=== PATIENT | female | born 1995 | race Caucasian/White ===

== ENCOUNTER 2017-06-11 21:10 | Emergency (ER) | payer MEDICAID ==
[2017-06-11 21:31] VITALS: BP 116/86
--- NOTE | 2017-06-11 21:53 | EDM.PDOC ---
ED HPI GENERAL MEDICAL PROBLEM - General Chief Complaint: ABSTRACTER Problem Stated Complaint: BLEEDING Time Seen by Provider: 06/11/17 21:53 Source of Information: Reports: Patient History Limitations: Reports: No Limitations - History of Present Illness INITIAL COMMENTS - FREE TEXT/NARRATIVE: 21-year-old female who is 3 para 0 presents to the hospital with bleeding per vagina. This blood is mostly old dark brown blood. Associated left- sided darnell-abdominal cramping pain particularly mid abdomen. Last semester. Is estimated to be March 04. This would make her approximately 14 weeks and 2 days . Patient indicates ED is having troubles with constipation. She states she can usually make her bowels work by drinking coffee. The has otherwise been uncomplicated of the nausea and vomiting intermittently which is better now. Her bleeding or problems so far. She had a miscarriage at 3 weeks gestation in a previous therapeutic . Onset: Today (Since no she's noticed brown vaginal discharge. No order.) Onset Date: 06/11/17 Onset Time: 12:00 Duration: Hour(s): Location: Reports: Other (Per vagina.) Quality: Reports: Other (Occasional cramping pain left lower quadrant mostly left mid lateral abdomen) Severity: Mild Improves with: Reports: None Worsens with: Reports: None Context: Reports: Other (Currently 14 weeks ). Denies: Activity, Exercise, Lifting, Sick Contact, Trauma Associated Symptoms: Denies: Loss of Appetite, Nausea/Vomiting, Rash, Seizure, Shortness of Breath, Syncope, Weakness Treatments APPRENTICE: Reports: Other (see below) (None.) Lower Abdomen Pain Score (Numeric/FACES): 6 - Related Data Allergies Allergy/AdvReac Type Severity Reaction Status Date / Time penicillin Allergy Rash Verified 09/14/15 07:16 Penicillins Allergy unknown Verified 11/08/15 03:10 CDT strawberry Allergy Hives Verified 09/14/15 07:16 Home Meds: Home Meds Albuterol [Ventolin HFA] 1 puff INH ASDIRECTED PRN 11/08/15 [History] PNV95/Ferrous Fumarate/FA [ Tablet] 1 tab PO DAILY 06/11/17 [History] Past Medical History HEENT History: Reports: Impaired Vision Other HEENT History: wears eyeglasses, Hx-ear infections. Cardiovascular History: Reports: Arrhythmia Other Cardiovascular History: irregular heartbeat Respiratory History: Reports: Asthma Genitourinary History: Reports: None, UTI, Recurrent ABSTRACTER History: Reports: , Spontaneous , Therapeutic , Other (See Below) Other OB/BYN History: IUD Musculoskeletal History: Reports: Back Pain, Chronic, None Neurological History: Reports: Migraines Psychiatric History: Reports: Addiction, Anxiety, Depression Immunologic History: Reports: None Oncologic (Cancer) History: Reports: None - Infectious Disease History Infectious Disease History: Reports: None - Past Surgical History HEENT Surgical History: Reports: Adenoidectomy, Tonsillectomy GI Surgical History: Reports: Appendectomy Social & Family History - Family History Family Medical History: Unobtainable HEENT: Reports: None Cardiac: Reports: None - Tobacco Use Smoking Status *Q: Never Smoker Second Hand Smoke Exposure: Yes - Caffeine Use Caffeine Use: Reports: Soda, Tea - Recreational Drug Use Recreational Drug Use: No Drug Use in Last 12 Months: Yes Recreational Drug Type: Reports: Marijuana/Hashish Other Recreational Drug Type: used marijuana in the past; last usage was in February Recreational Drug Use Frequency: Socially Recreational Drug Last Use: sep 07 2015 - Living Situation & Occupation Living situation: Reports: Single Occupation: Student ED ROS GENERAL - Review of Systems Review Of Systems: See Below Constitutional: Reports: Malaise, Weakness, Fatigue. Denies: Fever, Chills, Decreased Appetite, Weight Loss HEENT: Reports: No Symptoms Respiratory: Reports: No Symptoms Cardiovascular: Reports: No Symptoms Endocrine: Reports: Fatigue GI/Abdominal: Reports: Abdominal Pain (See history of present illness) : Reports: Frequency Musculoskeletal: Reports: No Symptoms Skin: Reports: No Symptoms Neurological: Reports: No Symptoms Psychiatric: Reports: No Symptoms Hematologic/Lymphatic: Reports: No Symptoms ED EXAM - Physical Exam Exam: See Below Exam Limited By: No Limitations General Appearance: Alert, WD/WN, Anxious, Mild Distress Eye Exam: Bilateral Eye: Normal Inspection Throat/Mouth: Normal Inspection, Normal Lips, Normal Teeth, Normal Oropharynx Cardiovascular: Normal Peripheral Pulses, Regular Rate, Rhythm, No Edema, No Gallop, No Murmur GI/Abdominal Exam: Normal Bowel Sounds, Soft, Non-Tender, No Organomegaly, No Distention, No Abnormal Bruit, Other (Uterus is just palpable suprapubically.) Fundal Height In cm: 3 (Female) Exam: Enlarged Uterus (Uterus feels 14 weeks in size.), Vaginal Discharge (Brownish colored vaginal discharge with no bright red blood. No older.). No: Adnexal Mass (L), Adnexal Mass (R), Cervical Dilatation (Cervix is closed) Heart Tones: Present Back Exam: Normal Inspection, Full Range of Motion Extremities: Normal Inspection, Normal Range of Motion, Non-Tender, Normal Capillary Refill Neurological: Alert, Oriented, CN II-XII Intact, Normal Cognition, Normal Gait Course - Vital Signs Last Recorded V/S: Last Vital Signs Temp 36.5 C 06/11/17 21:30 Pulse 89 06/11/17 21:30 Resp 20 06/11/17 21:30 BP 116/86 06/11/17 21:30 Pulse Ox 100 06/11/17 21:30 - Orders/Labs/Meds Orders: Active Orders 24 hr Category Date Time Status OB Ltd 1 or More Fetus [US] Stat Exams 06/11/17 21:50 Taken Labs: Laboratory Tests 06/11/17 Range/Units 23:27 Urine Color Yellow (Yellow) Urine Appearance Clear (Clear) Urine pH 6.0 (5.0-8.0) Ur Specific [place] > or = 1.030 (1.005-1.030) Urine Protein Negative (Negative) Urine Glucose (UA) Negative (Negative) Urine Ketones 1+ H (Negative) Urine Occult Blood Trace-lysed H (Negative) Urine Nitrite Negative (Negative) Urine Bilirubin Negative (Negative) Urine Urobilinogen 0.2 (0.2-1.0) Ur Leukocyte Esterase Negative (Negative) Urine RBC 0-5 (0-5) /hpf Urine WBC Not seen (0-5) /hpf Ur Epithelial Cells Not seen (0-5) /hpf Ur Squamous Epith Cells 0-5 (0-5) /hpf Urine Bacteria Few (FEW) /hpf Urine Mucus Not seen (FEW) /hpf - Radiology Interpretation Free Text/Narrative:: 21-year-old female presents to the ED with vaginal discharge which is brownish in color and seems to be progressing as the day has gone on. She is very apprehensive as she has had 2 previous failed pregnancies. She is 3 para 0. Clinically she is 14 weeks and 2 days gestation. She is expressing some mild left-sided lower abdominal pain and left mid abdominal pain with extra bowel sounds suggestive of intestinal colic. Cervix is closed uterus is anteverted in 14 weeks in size. An ultrasound will be performed transabdominally so we'll get her bladder filled out. She absolutely is petrified of needles and deferred blood work. Since I did not feel was absolutely necessary at this time due to normal examination I will not have labs performed at this time. - Re-Assessments/Exams Free Text/Narrative Re-Assessment/Exam: 06/11/17 23:41 transabdominal ultrasound performed. It reveals a 14 week 5 day gestation with good heart tones at 1 46/m. No evidence of subchorionic hemorrhage is identified. No placenta previa identified. Baby was noted to be quite active on ultrasound. Current vaginal discharge may be nonspecific vaginitis. I will have her follow-up with her ABSTRACTER later this week. 06/12/17 00:01 urinalysis showed trace of lysed blood only no signs of infection. Departure - Departure Time of Disposition: 23:53 Disposition: Home, Self-Care 01 Condition: Fair Clinical Impression: Second trimester Vaginal discharge during Qualifiers: Trimester: second trimester Qualified Code(s): O26.892 - Other specified related conditions, second trimester - Discharge Information Referrals: Sandip Barba MD [Primary Care Provider] - Forms: ED Department Discharge Additional Instructions: Evaluation in the emergency room today in regards to development of a brownish vaginal discharge today. It seemed to increase as the day went on. No bright bleeding was appreciated. Cervix was closed and the uterus correlated with dates. The transabdominal abdominal ultrasound confirmed a of 14 weeks and 5 days with heart rate of 146 bpm. There was no evidence of any abnormalities of the placenta position. No abdomen maladies were detected intrauterine and appears to be a normal second trimester . Because of the vaginal discharges likely mild blood coming from the cervical mucus. It should clear up in a day or so. If not follow-up with your ABSTRACTER. Abdominal pain to think are more likely to be due to stool within the left hemicolon. No change in treatment is indicated at this time - My Orders Last 24 Hours: My Active Orders 06/11/17 21:50 OB Ltd 1 or More Fetus [US] Stat - Assessment/Plan Last 24 Hours: My Active Orders 06/11/17 21:50 OB Ltd 1 or More Fetus [US] Stat
--- NOTE | 2017-06-12 07:38 | US ---
Limited obstetrical ultrasound: Multiple real-time images were obtained. Comparison: No previous study. Dates: LMP: LMP given as 03/04/17, TAMI 12/09/17, gestational age 14 weeks 1 day Current ultrasound: TAMI 12/05/17, gestational age 14 weeks 5 days presentation: Breech Placenta: Anterior with no findings of placenta previa or abruption. Amniotic fluid: JONATHAN of 9.9 cm Maternal adnexa: Small corpus luteum cyst is noted within the left ovary which is incidental. Right ovary is unremarkable. Measurements: BPD: 2.77 cm - 15 weeks 0 days Head circumference: 9.87 cm - 14 weeks 5 days Abdominal circumference: 8.32 cm - 14 weeks 5 days Femur length: 1.33 cm - 14 weeks 0 days Estimated weight: 95 g (0 lbs. 3 oz.), estimated weight is at the 15th percentile for age by current ultrasound Heart rate: 145 bpm Cervical length: 3.9 cm Impression: 1. Single intrauterine fetus currently breech in presentation. Dates as noted above. 2. No complicating process is seen by ultrasound at this time. Diagnostic code #1 Agree with preliminary report issued by [employer] ([facility] preliminary report dictated on 06/12/17, 12:42 AM Central Time)
== END 2017-06-12 | disposition home or self-care (01) ==
LOC: JD.ED 21:10
DX: O26.892 Other specified pregnancy related conditions, second trimester (principal); J45.909 Unspecified asthma, uncomplicated; Z3A.14 14 weeks gestation of pregnancy; Z88.0 Allergy status to penicillin; Z91.018 Allergy to other foods
CPT/HCPCS: 76815; 76815-26; 81001; 99284; 99284-25

== ENCOUNTER 2017-11-01 08:39 | Observation (INO) | payer MEDICAID ==
[2017-11-01 09:15] VITALS: BP 120/70
[2017-11-01] MEDS ORDERED: Nitrofurantoin Monohydrate/Macrocrystalline 100 MG Cap PO ONE (09:55)
[2017-11-01] MEDS ORDERED: Terbutaline 1 MG/ML SDV ONE (11:07)
[2017-11-01] MEDS ORDERED: Terbutaline 1 MG/ML SDV SUBCUT ONE (11:12)
--- NOTE | 2017-11-01 14:40 | PCM.SN ---
- Free Text/Narrative Note: Alice is a 22-year-old 1 para 0 female at 34 weeks was evaluated outpatient irregular with some contractions but low abdominal/pelvic pain midline and suprapubic. No UTI symptoms, bleeding, loss of vaginal fluid. Baby has been active. Clinical evaluation shows some contractions every 5-10 minutes, most not felt by the patient. With hydration these settled down. Did give the patient 0.25 mg terbutaline and contractions resolved completely with this. NST is reactive. Urinalysis shows an increase in white blood cells and other findings consistent with urinary tract infection. Urine culture was set up. Assessment: 1. 34 week intrauterine . 2. Tract infection Plan: 1. Macrobid 1 by mouth twice a day new. 2. Urine culture 3. Follow-up in clinic within the next week.
== END 2017-11-01 12:10 | disposition home or self-care (01) ==
LOC: JD.OBCHECK 08:39 → JD.OB 08:40 → JD.OBCHECK 08:50 → JD.OB 08:50
PROVIDERS: ADMIT Obstetrics & Gynecology; ATTEND Obstetrics & Gynecology
DX: O23.43 Unspecified infection of urinary tract in pregnancy, third trimester (principal); Z3A.34 34 weeks gestation of pregnancy
CPT/HCPCS: 59025; 81001; 87086; 96372; A9270-GY; G0378; J3105

== ENCOUNTER 2017-12-17 22:35 | Inpatient (IN) | payer MEDICAID ==
[2017-12-18] MEDS ORDERED: Sodium Chloride 0.9% 10 ML Syringe FLUSH PRN (00:03)
[2017-12-18] MEDS ORDERED: ePHEDrine 50 MG/ML SDV IVPUSH PRN (08:08)
[2017-12-18] MEDS ORDERED: Ondansetron 4 MG/2 ML SDV IVPUSH PRN (08:08)
--- NOTE | 2017-12-18 08:15 | PCM.PREANE ---
Preanesthetic Assessment - Anesthesia/Transfusion/Family Hx Anesthesia History: Prior Anesthesia Without Reaction Family History of Anesthesia Reaction: No Transfusion History: No Prior Transfusion(s) Intubation History: Unknown - Review of Systems General: No Symptoms Pulmonary: No Symptoms (Asthma-last used inhaler over one month ago.) Cardiovascular: Palpitations (with anxiety attacks) Gastrointestinal: No Symptoms (GERD ), Nausea Neurological: Headache (migraines) Other: Reports: Anxiety - Physical Assessment NPO Status Date: 12/18/17 NPO Status Time: 06:30 Pulse: 102 O2 Sat by Pulse Oximetry: 98 Respiratory Rate: 18 Blood Pressure: 123/87 Temperature: 36.2 C Vital Signs: Last Vital Signs Temp 36.2 C 12/17/17 22:48 Pulse 102 H 12/17/17 22:48 Resp 18 12/17/17 22:48 BP 123/87 12/17/17 22:48 Pulse Ox 98 12/17/17 22:48 Height: 1.7 m Weight: 94.347 kg ASA Class: 2 Mental Status: Alert & Oriented x3 Airway Class: Mallampati = 2 Dentition: Reports: Missing Tooth/Teeth Thyro-Mental Finger Breadths: 3 Mouth Opening Finger Breadths: 3 ROM/Head Extension: Full Lungs: Clear to Auscultation, Normal Respiratory Effort Cardiovascular: Regular Rate, Regular Rhythm, No Murmurs - Lab Values: Laboratory Last Values WBC 10.88 K/mm3 (3.98-10.04) H 12/18/17 00:20 RBC 4.48 M/mm3 (3.98-5.22) 12/18/17 00:20 Hgb 11.1 gm/L (11.2-15.7) L 12/18/17 00:20 Hct 34.6 % (34.1-44.9) 12/18/17 00:20 MCV 77.2 fl (79.4-94.8) L 12/18/17 00:20 MCH 24.8 pg (25.6-32.2) L 12/18/17 00:20 MCHC 32.1 g/dl (32.2-35.5) L 12/18/17 00:20 RDW Std Deviation 43.6 fL (36.4-46.3) 12/18/17 00:20 Plt Count 287 K/mm3 (182-369) 12/18/17 00:20 MPV 9.9 fl (9.4-12.3) 12/18/17 00:20 Neut % (Auto) 73.1 % (34.0-71.1) H 12/18/17 00:20 Lymph % (Auto) 20.2 % (19.3-51.7) 12/18/17 00:20 [place] % (Auto) 5.7 % (4.7-12.5) 12/18/17 00:20 Eos % (Auto) 0.6 (0.7-5.8) L 12/18/17 00:20 Baso % (Auto) 0.1 % (0.1-1.2) 12/18/17 00:20 Neut # (Auto) 7.95 K/mm3 (1.56-6.13) H 12/18/17 00:20 Lymph # (Auto) 2.20 K/mm3 (1.18-3.74) 12/18/17 00:20 [place] # (Auto) 0.62 K/mm3 (0.24-0.36) H 12/18/17 00:20 Eos # (Auto) 0.07 K/mm3 (0.04-0.36) 12/18/17 00:20 Baso # (Auto) 0.01 K/mm3 (0.01-0.08) 12/18/17 00:20 All lab values reviewed and noted and within acceptable ranges to proceed with epidural when desired. - Allergies Allergies/Adverse Reactions: Allergies Allergy/AdvReac Type Severity Reaction Status Date / Time penicillin Allergy Rash Verified 09/14/15 07:16 Penicillins Allergy unknown Verified 10/23/17 02:05 strawberry Allergy Hives Verified 09/14/15 07:16 - Anesthesia Plan Pre-Op Medication Ordered: None - Acknowledgements Anesthesia Type Planned: Epidural Pt an Appropriate Candidate for the Planned Anesthesia: Yes Alternatives and Risks of Anesthesia Discussed w Pt/Guardian: Yes Pt/Guardian Understands and Agrees with Anesthesia Plan: Yes PreAnesthesia Questionnaire HEENT History: Reports: Impaired Vision Other HEENT History: wears eyeglasses, Hx-ear infections. 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: , Spontaneous , Therapeutic , Other (See Below) Other OB/BYN History: IUD Musculoskeletal History: Reports: Back Pain, Chronic, None Neurological History: Reports: Migraines Psychiatric History: Reports: Anxiety, Depression Immunologic History: Reports: None Oncologic (Cancer) History: Reports: None - Infectious Disease History Infectious Disease History: Reports: None - Past Surgical History HEENT Surgical History: Reports: Adenoidectomy, Tonsillectomy GI Surgical History: Reports: Appendectomy - SUBSTANCE USE Smoking Status *Q: Never Smoker Second Hand Smoke Exposure: No Recreational Drug Use History: No - HOME MEDS Home Medications: Home Meds Albuterol [Ventolin HFA] 1 puff INH ASDIRECTED PRN 11/08/15 [History] PNV95/Ferrous Fumarate/FA [ Tablet] 1 tab PO DAILY 06/11/17 [History] - CURRENT (IN HOUSE) MEDS Current Meds: Current Medications Ephedrine Sulfate (Ephedrine Sulfate) 5 mg IVPUSH ASDIRECTED PRN PRN Reason: Hypotension Fentanyl/Bupivacaine HCl (Fentanyl/Bupivacaine/Ns 2 Mcg-0.125% 100 Ml) 100 ml EPIDUR ASDIRECTED MARIANNE Lactated Ringer's (Ringers, Lactated) 1,000 mls @ 100 mls/hr IV ASDIRECTED MARIANNE Sodium Chloride (Saline Flush) 10 ml FLUSH ASDIRECTED PRN PRN Reason: Keep Vein Open
--- NOTE | 2017-12-18 08:26 | PCM.LDHP ---
L&D History of Present Illness - General Date of Service: 12/17/17 Admit Problem/Dx: Patient Status Order with Admit Dx/Problem 12/18/17 00:03 Patient Status [ADT] Routine Admission Diagnosis/Problem Admission Diagnosis/Problem Source of Information: Patient History Limitations: Reports: No Limitations - History of Present Illness Introduction:: 22 year old female at 38w2d presents with concern of rupture of membranes. Was in the shower and had a large gush of fluid. Soaked two pairs of underwear. Amnisure negative. Has headache and doesn't feel great. Very anxious. Irregular contractions with some of them painful. - Related Data Allergies/Adverse Reactions: Allergies Allergy/AdvReac Type Severity Reaction Status Date / Time penicillin Allergy Rash Verified 09/14/15 07:16 Penicillins Allergy unknown Verified 10/23/17 02:05 strawberry Allergy Hives Verified 09/14/15 07:16 Home Medications: Home Meds Albuterol [Ventolin HFA] 1 puff INH ASDIRECTED PRN 11/08/15 [History] PNV95/Ferrous Fumarate/FA [ Tablet] 1 tab PO DAILY 06/11/17 [History] Past Medical History HEENT History: Reports: Impaired Vision Other HEENT History: wears eyeglasses, Hx-ear infections. 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 , Therapeutic , Other (See Below) Other OB/BYN History: IUD Musculoskeletal History: Reports: Back Pain, Chronic, None Neurological History: Reports: Migraines Psychiatric History: Reports: Anxiety, Depression Immunologic History: Reports: None Oncologic (Cancer) History: Reports: None - Infectious Disease History Infectious Disease History: Reports: None - Past Surgical History HEENT Surgical History: Reports: Adenoidectomy, Tonsillectomy GI Surgical History: Reports: Appendectomy Social & Family History - Family History Family Medical History: Noncontributory HEENT: Reports: None Cardiac: Reports: None - Tobacco Use Smoking Status *Q: Never Smoker Second Hand Smoke Exposure: No - Caffeine Use Caffeine Use: Reports: Soda, Tea - Recreational Drug Use Recreational Drug Use: No - Living Situation & Occupation Living situation: Reports: Single Occupation: Student H&P Review of Systems - Review of Systems: Review Of Systems: See Below HEENT: Reports: No Symptoms, Headaches Pulmonary: Reports: No Symptoms Cardiovascular: Reports: No Symptoms Gastrointestinal: Reports: No Symptoms Genitourinary: Reports: No Symptoms Musculoskeletal: Reports: No Symptoms Skin: Reports: No Symptoms Psychiatric: Reports: No Symptoms Neurological: Reports: No Symptoms Hematologic/Lymphatic: Reports: No Symptoms Immunologic: Reports: No Symptoms L&D Exam - Exam Exam: See Below - Vital Signs Vital Signs: Last Vital Signs Temp 36.2 C 12/18/17 08:15 Pulse 102 H 12/18/17 08:15 Resp 18 12/18/17 08:15 BP 123/87 12/18/17 08:15 Pulse Ox 98 12/18/17 08:15 Weight: 94.347 kg - OB Specific Contraction Intensity: Mild to Moderate Presentation: Vertex - Brennan Score Brennan Score Cervix Position: Midposition Brennan Score Consistency: Soft Brennan Score Effacement: 51-70% Brennan Score Dilation: 3-4 cm Brennan Score Infant's Station: -3 Brennan Score Total: 7 - Exam General: Alert, Oriented HEENT: PERRLA, Conjunctiva Clear, EACs Clear, EOMI, Hearing Intact, Mucosa Moist & [place], Nares Patent, Normal Nasal Septum, Posterior Pharynx Clear, TMs Clear Neck: Supple, Trachea Midline Lungs: Clear to Auscultation, Normal Respiratory Effort Cardiovascular: Regular Rate, Regular Rhythm GI/Abdominal Exam: Normal Bowel Sounds, Soft, Non-Tender, No Organomegaly, No Distention, No Abnormal Bruit, No Mass, Pelvis Stable Rectal Exam: Normal Exam, Normal Rectal Tone Genitourinary: Normal external exam Back Exam: Normal Inspection, Full Range of Motion Extremities: Normal Inspection, Normal Range of Motion, Non-Tender, No Pedal Edema, Normal Capillary Refill Skin: Warm, Dry, Intact Neurological: Cranial Nerves Intact, Reflexes Equal Bilateral Psychiatric: Alert, Normal Affect, Normal Mood - Patient Data Lab Results Last 24 hrs: Laboratory Results - last 24 hr 12/18/17 Range/Units 00:20 WBC 10.88 H (3.98-10.04) K/mm3 RBC 4.48 (3.98-5.22) M/mm3 Hgb 11.1 L (11.2-15.7) gm/L Hct 34.6 (34.1-44.9) % MCV 77.2 L (79.4-94.8) fl MCH 24.8 L (25.6-32.2) pg MCHC 32.1 L (32.2-35.5) g/dl RDW Std Deviation 43.6 (36.4-46.3) fL Plt Count 287 (182-369) K/mm3 MPV 9.9 (9.4-12.3) fl Neut % (Auto) 73.1 H (34.0-71.1) % Lymph % (Auto) 20.2 (19.3-51.7) % [place] % (Auto) 5.7 (4.7-12.5) % Eos % (Auto) 0.6 L (0.7-5.8) Baso % (Auto) 0.1 (0.1-1.2) % Neut # (Auto) 7.95 H (1.56-6.13) K/mm3 Lymph # (Auto) 2.20 (1.18-3.74) K/mm3 [place] # (Auto) 0.62 H (0.24-0.36) K/mm3 Eos # (Auto) 0.07 (0.04-0.36) K/mm3 Baso # (Auto) 0.01 (0.01-0.08) K/mm3 Result Diagrams: 12/18/17 00:20 Problem List Initiated/Reviewed/Updated: Yes Orders Last 24hrs: Active Orders 24 hr Category Date Time Status Patient Status [ADT] Routine ADT 12/18/17 00:03 Active Activity as Tolerated [RC] PFP Care 12/18/17 00:03 Active Communication Order [RC] ASDIRECTED Care 12/18/17 00:03 Active Heart Tones [RC] ASDIRECTED Care 12/18/17 00:04 Active Notify Provider [RC] ASDIRECTED Care 12/18/17 08:08 Active Notify Provider [RC] PFP Care 12/18/17 00:03 Active Notify Provider [RC] PRN Care 12/18/17 00:03 Active Oxygen Therapy [RC] ASDIRECTED Care 12/18/17 08:08 Active Peripheral IV Care [RC] . DIRECTED Care 12/18/17 00:04 Active Pulse Oximetry [RC] ASDIRECTED Care 12/18/17 08:08 Active Vital Signs [RC] PER UNIT ROUTINE Care 12/18/17 00:03 Active Regular Diet [DIET] Diet 12/18/17 Breakfast Active Bupivacaine/fentaNYL/NS [fentaNYL/Bupivacaine/NS 2 MCG- Med 12/18/17 08:15 Active 0.125% 100 ML] 100 ml EPIDUR ASDIRECTED Lactated Ringers [Ringers, Lactated] 1,000 ml Med 12/18/17 00:15 Active IV ASDIRECTED Ondansetron [Zofran] Med 12/18/17 08:08 Active 4 mg IVPUSH ONETIME PRN Sodium Chloride 0.9% [Saline Flush] Med 12/18/17 00:03 Active 10 ml FLUSH ASDIRECTED PRN ePHEDrine [ePHEDrine Sulfate] Med 12/18/17 08:08 Active 5 mg IVPUSH ASDIRECTED PRN fentaNYL [Sublimaze] Med 12/18/17 08:08 Active 100 mcg EPIDUR Q3H PRN Electronic Heart Tones Ext w TOCO [WOMSER] Oth 12/18/17 00:03 Ordered Routine Electronic Heart Tones Internal [WOMSER] Per Unit Oth 12/18/17 00:03 Ordered Routine Peripheral IV Insertion Adult [OM.PC] Routine Oth 12/18/17 00:03 Ordered Resuscitation Status Routine Resus Stat 12/18/17 00:03 Ordered Medication Orders Ephedrine Sulfate (Ephedrine Sulfate) 5 mg IVPUSH ASDIRECTED PRN PRN Reason: Hypotension Fentanyl (Sublimaze) 100 mcg EPIDUR Q3H PRN PRN Reason: Pain Fentanyl/Bupivacaine HCl (Fentanyl/Bupivacaine/Ns 2 Mcg-0.125% 100 Ml) 100 ml EPIDUR ASDIRECTED MARIANNE Lactated Ringer's (Ringers, Lactated) 1,000 mls @ 100 mls/hr IV ASDIRECTED MARIANNE Ondansetron HCl (Zofran) 4 mg IVPUSH ONETIME PRN PRN Reason: Nausea/Vomiting Sodium Chloride (Saline Flush) 10 ml FLUSH ASDIRECTED PRN PRN Reason: Keep Vein Open Assessment/Plan Comment:: Term with elevated blood pressures 140s-150/90s. Negative amnisure but very convincing story. -Induction for gestational hypertension with mild headache. Labs normal.
[2017-12-18] MEDS: Lactated Ringers 1,000 ML IV SCH ×3 (08:59→16:51)
[2017-12-18] MEDS: fentaNYL 100 MCG/2 ML SDV EPIDUR PRN ×2 (09:56→17:38)
[2017-12-18] MEDS: Bupivacaine/fentaNYL/NS 100 ML Bag EPIDUR SCH ×2 (09:56→17:40)
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
[2017-12-18] MEDS ORDERED: Acetaminophen 325 MG Tab PO PRN (12:25)
[2017-12-18] MEDS ORDERED: Oxytocin/Lactated Ringers 10 UNIT/1,000 ML BAG IV SCH ×2 (16:15)
[2017-12-18] MEDS ORDERED: Bupivacaine 0.25% 10 ML SDV ONE (17:00)
[2017-12-19] MEDS ORDERED: Non-Formulary Medication 1 Each (Albuterol 1 PUFF) INH PRN (00:15)
[2017-12-19] MEDS ORDERED: Acetaminophen 325 MG Tab PO PRN (00:19)
[2017-12-19] MEDS ORDERED: Measles, Mumps & Rubella Vaccine 0.5 ML SDV SUBCUT ONE (00:19)
[2017-12-19] MEDS ORDERED: Benzocaine/Menthol 20%-0.5% Spray 56 GM Canister TOP PRN (00:19)
[2017-12-19] MEDS ORDERED: Witch Hazel Medicated Pads 100/Jar TOP PRN (00:19)
[2017-12-19] MEDS ORDERED: Lanolin 100% Cream 7 GM Tube TOP PRN (00:19)
--- NOTE | 2017-12-19 00:24 | PCM.SN ---
- Free Text/Narrative Note: Zakia is a 22-year-old 3 now para 10-1 white female with a due date of 12/11/2017 for ultrasound and LMP dating. Who was admitted in early labor on the a.m. of 12/18/2017. She is shahbaz every 3-5 minutes had made small amount of progress and underwent artificial rupture membranes. Amniotic fluid was noted to be moderate to thick meconium. Heart tones were good throughout the labor with the exception 1 deceleration occurred and was somewhat prolonged. Because of that Dr. Morales chartered financial analyst, was in attendance at the time of delivery. Patient achieved complete cervical dilation by approximately 2149 hrs. on 12/17/2017. She pushed for approximately 2 hours and delivered a viable, chinchilla, male infant with a weight of 3630 g (8 lbs. 0 oz.), an of 8 and 9 in a left occiput anterior position at 2351 hrs. Baby's name is Tee. The baby was taken to the warmer after cord was clamped and cut. This for Dr. Morales to attend to the meconium-stained amniotic fluid. Cord blood was obtained. A midline perineal second-degree laceration which occurred with delivery was then repaired using 3-0 Monocryl suture in routine fashion. Epidural was used for laceration repair anesthesia. The placenta delivered at 0002 hours on 12/19/2017 in a Foreman presentation, appeared intact and complete and was discarded per patient desire. Pitocin was given after delivery the baby to facilitate crease tone in the uterus and decreased likelihood of bleeding. Estimated blood loss was 200 mL. Patient plans to breast -feed. Condition good.
[2017-12-19] MEDS: Ibuprofen 600 MG Tab PO PRN ×4 (01:06→21:02)
--- NOTE | 2017-12-19 08:32 | PCM48HPAN ---
Post Anesthesia Note - EVALUATION WITHIN 48HRS OF ANESTHETIC Vital Signs in Normal Range: Yes Patient Participated in Evaluation: Yes Respiratory Function Stable: Yes Airway Patent: Yes Cardiovascular Function Stable: Yes Hydration Status Stable: Yes Pain Control Satisfactory: Yes Nausea and Vomiting Control Satisfactory: Yes Mental Status Recovered: Yes Pulse Rate: 91 Resp Rate: 15 Temperature: 97.3 F Blood Pressure: 127/81
--- NOTE | 2017-12-19 08:44 | PCM.SN ---
- Free Text/Narrative Note: note: Patient is doing well in the period. Minimal lochia, voiding well, ambulated without problems. Nursing without concerns. Patient is afebrile, vital signs are stable Abdomen is flat, soft, uterus is below the umbilicus and is firm and nontender. Legs are nontender. Assessment: recovery going well. Plan: Routine care. Patient be discharged home within the next 24- 48 hours.
[2017-12-19] MEDS: Docusate Sodium 100 MG Cap PO PRN ×2 (14:38→21:02)
--- NOTE | 2017-12-20 06:20 | PCM.DCSUM1 ---
Discharge Summary - Hospital Course Free Text/Narrative:: Zakia is a 22-year-old 3 now para 10-1 white female with a due date of 12/11/2017 for ultrasound and LMP dating. Who was admitted in early labor on the a.m. of 12/18/2017. She is shahbaz every 3-5 minutes had made small amount of progress and underwent artificial rupture membranes. Amniotic fluid was noted to be moderate to thick meconium. Heart tones were good throughout the labor with the exception 1 deceleration occurred and was somewhat prolonged. Because of that Dr. Morales access control officer, was in attendance at the time of delivery. Patient achieved complete cervical dilation by approximately 2149 hrs. on 12/17/2017. She pushed for approximately 2 hours and delivered a viable, chinchilla, male infant with a weight of 3630 g (8 lbs. 0 oz.), an of 8 and 9 in a left occiput anterior position at 2351 hrs. Baby's name is Tee. The baby was taken to the warmer after cord was clamped and cut. This for Dr. Morales to attend to the meconium-stained amniotic fluid. Cord blood was obtained. A midline perineal second-degree laceration which occurred with delivery was then repaired using 3-0 Monocryl suture in routine fashion. Epidural was used for laceration repair anesthesia. The placenta delivered at 0002 hours on 12/19/2017 in a Foreman presentation, appeared intact and complete and was discarded per patient desire. Pitocin was given after delivery the baby to facilitate crease tone in the uterus and decreased likelihood of bleeding. Estimated blood loss was 200 mL. Patient plans to breast -feed. patient is doing well. She is ambulating well, has minimal lochia, pain was under good control and she is nursing well. She is voiding without concerns. Is desiring discharge home. - Discharge Data Discharge Date: 12/20/17 Discharge Disposition: Home, Self-Care 01 Condition: Good - Patient Instructions Diet: Regular Diet as Tolerated (Nursing diet with increase calories and calcium as recommended) Activity: As Tolerated (No intercourse or tampons until bleeding resolves) Driving: May Drive Today Showering/Bathing: May Shower (May take a bath) Notify Provider of: Fever, Increased Pain, Swelling and Redness, Nausea and/or Vomiting - Discharge Plan Home Medications: Home Meds Albuterol [Ventolin HFA] 1 puff INH ASDIRECTED PRN 11/08/15 [History] PNV95/Ferrous Fumarate/FA [ Tablet] 1 tab PO DAILY 06/11/17 [History] Acetaminophen [Tylenol] 650 mg PO Q4H PRN tablet 12/20/17 [Rx] Ibuprofen [Motrin] 600 mg PO Q4H PRN tablet 12/20/17 [Rx] Referrals: Sandip Barba MD [Primary Care Provider] - - Discharge Summary/Plan Comment DC Time >30 min.: No Discharge Summary/Plan Comment: Discharge instructions: 1. Discharge home 2. Diet, activity and follow-up discussed with patient. Recommend nursing diet with increased calories and calcium. 3. Precautions given concern increased pain, bleeding, temperature, signs/ symptoms of DVT/PE. 4. Medications per home medication was printed, discussed with and given to the patient. 5. Return to clinic-Dr. Barba[facility] in 2 weeks. Diagnosis: Term -delivered Condition: Good - Patient Data Vitals - Most Recent: Last Vital Signs Temp 36.4 C 12/20/17 03:15 Pulse 76 12/20/17 03:15 Resp 15 12/20/17 03:15 BP 113/65 12/20/17 03:15 Pulse Ox 99 12/20/17 03:15 Weight - Most Recent: 94.347 kg I&O - Last 24 hours: Intake & Output 12/19/17 12/19/17 12/20/17 14:59 22:59 06:59 Intake Total 240 240 Balance 240 240 Med Orders - Current: Current Medications Acetaminophen (Tylenol) 650 mg PO Q4H PRN PRN Reason: mild pain or fever Benzocaine/Menthol (Dermoplast Pain Relief [place]) 0 gm TOP ASDIRECTED PRN PRN Reason: Perineal Comfort Measure Last Admin: 12/19/17 01:11 Dose: 1 canister Docusate Sodium (Colace) 100 mg PO BID PRN PRN Reason: Constipation Last Admin: 12/19/17 21:02 Dose: 100 mg Emollient Ointment (Lansinoh Hpa) 0 gm TOP ASDIRECTED PRN PRN Reason: Sore Nipples Last Admin: 12/19/17 01:12 Dose: 1 tube Ibuprofen (Motrin) 600 mg PO Q4H PRN PRN Reason: Mild pain or fever Last Admin: 12/19/17 21:02 Dose: 600 mg Witch Fatmata (Tucks) 1 pad TOP ASDIRECTED PRN PRN Reason: Hemorrhoid pain Last Admin: 12/19/17 01:11 Dose: 1 jar Discontinued Medications Acetaminophen (Tylenol) 650 mg PO Q6H PRN PRN Reason: Headache Last Admin: 12/18/17 12:47 Dose: 650 mg Bupivacaine HCl (Sensorcaine-Mpf 0.25%) 10 ml .ROUTE .STK-MED ONE Stop: 12/18/17 17:01 Ephedrine Sulfate (Ephedrine Sulfate) 5 mg IVPUSH ASDIRECTED PRN PRN Reason: Hypotension Fentanyl (Sublimaze) 100 mcg EPIDUR Q3H PRN PRN Reason: Pain Last Admin: 12/18/17 17:38 Dose: 100 mcg Fentanyl/Bupivacaine HCl (Fentanyl/Bupivacaine/Ns 2 Mcg-0.125% 100 Ml) 100 ml EPIDUR ASDIRECTED MARIANNE Last Admin: 12/18/17 17:40 Dose: 100 ml Lactated Ringer's (Ringers, Lactated) 1,000 mls @ 100 mls/hr IV ASDIRECTED MARIANNE Last Admin: 12/18/17 16:51 Dose: 100 mls/hr Oxytocin/Lactated Ringer's (Pitocin In Lr 10 Units/1,000 Ml) 10 unit in 1,000 mls @ 12 mls/hr IV TITRATE MARIANNE; Protocol Last Titration: 12/18/17 23:55 Dose: 999 mls/hr Oxytocin/Lactated Ringer's (Pitocin In Lr 10 Units/1,000 Ml) 10 unit in 1,000 mls @ 500 mls/hr IV .CONTINUOUS MARIANNE; Protocol Measles/Mumps/Rubella Vaccine Live (M-M-R Ii Vaccine) 0.5 ml SUBCUT .ONCE ONE Stop: 12/19/17 00:20 Last Admin: 12/19/17 01:08 Dose: Not Given Non-Formulary Medication (Albuterol) 1 puff INH ASDIRECTED PRN PRN Reason: asthma attack Ondansetron HCl (Zofran) 4 mg IVPUSH ONETIME PRN PRN Reason: Nausea/Vomiting Last Admin: 12/18/17 10:39 Dose: 4 mg Sodium Chloride (Saline Flush) 10 ml FLUSH ASDIRECTED PRN PRN Reason: Keep Vein Open
[2017-12-20] MEDS: Ibuprofen 600 MG Tab PO PRN (10:08)
[2017-12-20 16:09] VITALS: BP 121/88
== END 2017-12-20 11:25 | disposition home or self-care (01) | DRG 775 ==
LOC: JD.OBCHECK 22:35 → JD.OB 22:37 → JD.OBCHECK 12-18 00:14 → JD.OB 12-18 00:20 → OBSVTOIN 12-18 23:51 → JD.OB 12-19 13:31
PROVIDERS: ADMIT Obstetrics & Gynecology; ATTEND Obstetrics & Gynecology
PROC: 10E0XZZ Delivery of Products of Conception, External Approach (ICD-10-PCS; principal; 2017-12-19)
PROC: 0KQM0ZZ Repair Perineum Muscle, Open Approach (ICD-10-PCS; 2017-12-19)
PROC: 10907ZC Drainage of Amniotic Fluid, Therapeutic from Products of Conception, Via Natural or Artificial Opening (ICD-10-PCS; 2017-12-19)
PROC: 3E0S3GC Introduction of Other Therapeutic Substance into Epidural Space, Percutaneous Approach (ICD-10-PCS; 2017-12-19)
DX: O76 Abnormality in fetal heart rate and rhythm complicating labor and delivery (principal); O70.1 Second degree perineal laceration during delivery; Z3A.41 41 weeks gestation of pregnancy; Z37.0 Single live birth
CPT/HCPCS: 01967; 36415; 51702; 59025; 59300; 59409; 85025; 85027; A9270-GY; J2405; J2590; J3010; J7120

== ENCOUNTER 2018-08-04 23:25 | Emergency (ER) | payer MEDICAID ==
[2018-08-04] MEDS ORDERED: Albuterol/Ipratropium 3.0-0.5 MG/3 ML Neb Soln NEB ONE (23:57)
[2018-08-05] MEDS: Albuterol/Ipratropium 3.0-0.5 MG/3 ML Neb Soln NEB ONE (01:25)
[2018-08-05 01:38] VITALS: BP 122/84
--- NOTE | 2018-08-05 08:37 | ER ---
REASON FOR EMERGENCY ROOM VISIT: Bronchitis. HISTORY OF PRESENT ILLNESS: This 22-year-old woman comes to the ER with increasing coughing and [id number] back pain with severe coughing paroxysms as well as some chest tightness. She does have a history of asthma, which has mostly been exercise induced, according to the patient. She only carries an albuterol rescue inhaler, but has not been on any other asthma medications. She is a smoker, but recently stopped smoking. She does smoke pot, but has not smoked any for a couple of days. She was seen yesterday and was told she had bronchitis. In careful questioning, she did state that she has had the coughing for approximately a week and had diarrhea that lasted 1 day over last weekend. She had a mild headache with the onset of these symptoms, but this has resolved. When she was diagnosed, she was given a Z-Romulo as well as a steroid taper, Zofran, Tessalon Perles, and a codeine cough syrup preparation. PAST MEDICAL HISTORY: Reviewed, see EMR. It includes: 1. Asthma. 2. Appendectomy. 3. Tonsillectomy. 4. 2, para 1. CURRENT MEDICATIONS: Include albuterol inhaler, Flexeril 10 mg p.r.n., Zofran, Tessalon Perles, Tylenol, prednisone taper, and a Z-Romulo. PHYSICAL EXAMINATION: GENERAL: She is somewhat anxious looking, but in no acute distress. She is not using any accessory muscles. She does not show any overt signs of cyanosis. VITAL SIGNS: Blood pressure 125/95, pulse of 100, respiratory rate 18, and O2 saturations 95% on room air. She is afebrile. HEENT: There is no conjunctivitis. TMs are normal. Oropharynx is normal. NECK: Supple. No adenopathy. No JVD is noted. No accessory muscle use. CHEST: She has very rare expiratory wheezes. Few wheezes; these wheezes resolved following coughing. There are no rhonchi or rales. There is good air exchange bilaterally. CARDIAC: Regular rate without murmur. ABDOMEN: Soft, nontender, nondistended. No hepatosplenomegaly. No palpable masses. EXTREMITIES: No cyanosis. FURTHER EMERGENCY ROOM COURSE: She was given 1 DuoNeb treatment and it improved her symptoms considerably. She still has coughing paroxysms, but these appear to be manageable. Her symptoms of tightness in the chest and shortness of breath have resolved. IMPRESSION: Asthmatic bronchitis. PLAN: I advised her to continue her medications. I did not add anything orally to what she is on now. I think that the DuoNebs will probably help her and she was instructed regarding their use. We did provide her with a nebulizer and a prescription was written for her DuoNebs. She was told she can use this every 6 hours as needed. I advised her to stay away from work until August 07. If she is still having significant symptoms after she completes the Z-Romulo, she probably ought to be seen again. She understands and agrees with this. All questions were answered. SANDRA /[id number]
--- NOTE | 2018-08-05 13:54 | CR ---
Chest: Two views of the chest were obtained. Comparison: Prior chest x-ray of 09/14/15. Heart size and mediastinum are normal. Lungs are clear. Mild scoliosis is present within the spine. Impression: 1. Mild scoliosis. Nothing acute is seen on two-view chest x-ray. Diagnostic code #2
== END 2018-08-05 01:27 | disposition home or self-care (01) ==
LOC: JD.ED 23:25
DX: J45.909 Unspecified asthma, uncomplicated (principal); F17.200 Nicotine dependence, unspecified, uncomplicated; Z90.49 Acquired absence of other specified parts of digestive tract; Z98.890 Other specified postprocedural states
CPT/HCPCS: 36415; 71046; 71046-26; 85025; 85379; 94640; 99284-25; J7620-GY

== ENCOUNTER 2020-03-21 23:55 | Emergency (ER) | payer SELFPAY ==
[2020-03-22 00:08] VITALS: BP 121/94; PULSE 100
--- NOTE | 2020-03-22 00:18 | EDM.PDOC ---
ED HPI GENERAL MEDICAL PROBLEM - General Chief Complaint: Abdominal Pain Stated Complaint: VOMITING/SOB/LOWER ABDOMINAL PAIN Time Seen by Provider: 03/22/20 00:13 - History of Present Illness INITIAL COMMENTS - FREE TEXT/NARRATIVE: 24-year-old female presents the emergency room with severe abdominal pain. This pain started later this afternoon and has progressed through the evening. The patient thinks his pain is possibly worse than childbirth. She has a history of kidney stones. The patient adamantly denies being she uses condoms. She has had no diarrhea or constipation she is had some nausea and vomiting. The pain is entirely on the right side started in her back and radiating down sometimes she gets shooting pain into her groin. She has had an appendectomy in the past she has had problems with ovarian cysts in the past not nearly this bad. She is not aware of any fevers or chills. Abdominal Pain Score (Numeric/FACES): 7 - Related Data Allergies Allergy/AdvReac Type Severity Reaction Status Date / Time penicillin Allergy Rash Verified 03/22/20 00:09 Penicillins Allergy unknown Verified 03/22/20 00:09 strawberry Allergy Hives Verified 03/22/20 00:09 Home Meds: Home Meds . [No Known Home Meds] 03/22/20 [History] Past Medical History HEENT History: Reports: Impaired Vision Other HEENT History: wears eyeglasses, Hx-ear infections. Cardiovascular History: Reports: Arrhythmia, Heart Murmur Other Cardiovascular History: irregular heartbeat Respiratory History: Reports: Asthma Genitourinary History: Reports: None, UTI, Recurrent INTELLIGENCE CHIEF History: Reports: , Spontaneous , Therapeutic , Other (See Below) Other INTELLIGENCE CHIEF History: ovarian cysts Musculoskeletal History: Reports: Back Pain, Chronic, None Neurological History: Reports: Migraines Psychiatric History: Reports: Anxiety, Depression Immunologic History: Reports: None Oncologic (Cancer) History: Reports: None - Infectious Disease History Infectious Disease History: Reports: None - Past Surgical History HEENT Surgical History: Reports: Adenoidectomy, Tonsillectomy GI Surgical History: Reports: Appendectomy Social & Family History - Family History Family Medical History: Noncontributory HEENT: Reports: None Cardiac: Reports: None - Tobacco Use Smoking Status *Q: Never Smoker Second Hand Smoke Exposure: No - Caffeine Use Caffeine Use: Reports: Tea - Recreational Drug Use Recreational Drug Use: Yes Drug Use in Last 12 Months: Yes Recreational Drug Type: Reports: Marijuana/Hashish Recreational Drug Use Frequency: Rarely - Living Situation & Occupation Living situation: Reports: Single Occupation: Student ED ROS GENERAL - Review of Systems Review Of Systems: See Below Constitutional: Reports: No Symptoms HEENT: Reports: No Symptoms Respiratory: Reports: No Symptoms Cardiovascular: Reports: No Symptoms GI/Abdominal: Reports: Abdominal Pain, Nausea, Vomiting. Denies: Constipation, Diarrhea : Reports: Flank Pain. Denies: Dysuria, Frequency, Urgency Musculoskeletal: Reports: No Symptoms Skin: Reports: No Symptoms Neurological: Reports: No Symptoms Psychiatric: Reports: No Symptoms ED EXAM, GI/ABD - Physical Exam Exam: See Below Exam Limited By: No Limitations General Appearance: Alert, Moderate Distress (From the pain) Head: Atraumatic, Normocephalic Neck: Normal Inspection, Supple, Non-Tender, Full Range of Motion Respiratory/Chest: No Respiratory Distress, Lungs Clear, Normal Breath Sounds Cardiovascular: Regular Rate, Rhythm, No Edema, No Murmur GI/Abdominal Exam: Normal Bowel Sounds, Soft, Other (Significant abdominal pain especially on the right. This is not made that much worse with palpation except in the right lower quadrant above the pelvis. No rigidity rebound or guarding noted) Back Exam: Normal Inspection. No: CVA Tenderness (L), CVA Tenderness (R) Neurological: Alert, Oriented, Normal Cognition Course - Vital Signs Last Recorded V/S: Last Vital Signs Temp 36.4 C 03/22/20 00:06 Pulse 100 03/22/20 00:06 Resp 20 03/22/20 00:06 BP 121/94 H 03/22/20 00:06 Pulse Ox 97 03/22/20 00:06 - Orders/Labs/Meds Orders: Active Orders 24 hr Category Date Time Status Abdomen Pelvis wo Cont [CT] Stat Exams 03/22/20 01:24 Taken Lactated Ringers [Ringers, Lactated] 1,000 ml Med 03/22/20 00:30 Active IV ASDIRECTED Medication Orders Lactated Ringer's (Ringers, Lactated) 1,000 mls @ 150 mls/hr IV ASDIRECTED MARIANNE Last Admin: 03/22/20 00:36 Dose: 150 mls/hr Documented by: ERASMO Labs: Laboratory Tests 03/22/20 03/22/20 03/22/20 Range/Units 00:14 00:30 00:30 WBC 10.71 H (3.98-10.04) K/mm3 RBC 4.74 (3.98-5.22) M/mm3 Hgb 13.8 (11.2-15.7) gm/dl Hct 41.7 (34.1-44.9) % MCV 88.0 D (79.4-94.8) fl MCH 29.1 (25.6-32.2) pg MCHC 33.1 (32.2-35.5) g/dl RDW Std Deviation 41.2 (36.4-46.3) fL Plt Count 278 (182-369) K/mm3 MPV 9.5 (9.4-12.3) fl Neut % (Auto) 72.9 H (34.0-71.1) % Lymph % (Auto) 18.8 L (19.3-51.7) % [place] % (Auto) 7.8 (4.7-12.5) % Eos % (Auto) 0.1 L (0.7-5.8) Baso % (Auto) 0.2 (0.1-1.2) % Neut # (Auto) 7.81 H (1.56-6.13) K/mm3 Lymph # (Auto) 2.01 (1.18-3.74) K/mm3 [place] # (Auto) 0.84 H (0.24-0.36) K/mm3 Eos # (Auto) 0.01 L (0.04-0.36) K/mm3 Baso # (Auto) 0.02 (0.01-0.08) K/mm3 Manual Slide Review Normal smear Sodium 138 (136-145) mEq/L Potassium 3.7 (3.5-5.1) mEq/L Chloride 102 (98-107) mEq/L Carbon Dioxide 24 (21-32) mEq/L Anion Gap 15.7 H (5-15) BUN 10 (7-18) mg/dL Creatinine 0.8 (0.55-1.02) mg/dL Est Cr Clr Drug Dosing 104.54 mL/min Estimated GFR (MDRD) > 60 (>60) mL/min BUN/Creatinine Ratio 12.5 L (14-18) Glucose 110 H (74-106) mg/dL Calcium 8.9 (8.5-10.1) mg/dL Total Bilirubin 0.5 (0.2-1.0) mg/dL AST 22 (15-37) U/L ALT 26 (14-59) U/L Alkaline Phosphatase 83 (46-116) U/L Total Protein 8.2 (6.4-8.2) g/dl Albumin 4.5 (3.4-5.0) g/dl Globulin 3.7 gm/dL Albumin/Globulin Ratio 1.2 (1-2) Lipase 100 (73-393) U/L HCG, Qual (NEGATIVE) Urine Color Yellow (Yellow) Urine Appearance Slt cloudy H (Clear) Urine pH 6.0 (5.0-8.0) Ur Specific [place] 1.025 (1.005-1.030) Urine Protein Negative (Negative) Urine Glucose (UA) Negative (Negative) Urine Ketones 2+ H (Negative) Urine Occult Blood Negative (Negative) Urine Nitrite Negative (Negative) Urine Bilirubin Negative (Negative) Urine Urobilinogen 0.2 (0.2-1.0) Ur Leukocyte Esterase Negative (Negative) 03/22/20 Range/Units 00:30 WBC (3.98-10.04) K/mm3 RBC (3.98-5.22) M/mm3 Hgb (11.2-15.7) gm/dl Hct (34.1-44.9) % MCV (79.4-94.8) fl MCH (25.6-32.2) pg MCHC (32.2-35.5) g/dl RDW Std Deviation (36.4-46.3) fL Plt Count (182-369) K/mm3 MPV (9.4-12.3) fl Neut % (Auto) (34.0-71.1) % Lymph % (Auto) (19.3-51.7) % [place] % (Auto) (4.7-12.5) % Eos % (Auto) (0.7-5.8) Baso % (Auto) (0.1-1.2) % Neut # (Auto) (1.56-6.13) K/mm3 Lymph # (Auto) (1.18-3.74) K/mm3 [place] # (Auto) (0.24-0.36) K/mm3 Eos # (Auto) (0.04-0.36) K/mm3 Baso # (Auto) (0.01-0.08) K/mm3 Manual Slide Review Sodium (136-145) mEq/L Potassium (3.5-5.1) mEq/L Chloride (98-107) mEq/L Carbon Dioxide (21-32) mEq/L Anion Gap (5-15) BUN (7-18) mg/dL Creatinine (0.55-1.02) mg/dL Est Cr Clr Drug Dosing mL/min Estimated GFR (MDRD) (>60) mL/min BUN/Creatinine Ratio (14-18) Glucose (74-106) mg/dL Calcium (8.5-10.1) mg/dL Total Bilirubin (0.2-1.0) mg/dL AST (15-37) U/L ALT (14-59) U/L Alkaline Phosphatase (46-116) U/L Total Protein (6.4-8.2) g/dl Albumin (3.4-5.0) g/dl Globulin gm/dL Albumin/Globulin Ratio (1-2) Lipase (73-393) U/L HCG, Qual Negative (NEGATIVE) Urine Color (Yellow) Urine Appearance (Clear) Urine pH (5.0-8.0) Ur Specific [place] (1.005-1.030) Urine Protein (Negative) Urine Glucose (UA) (Negative) Urine Ketones (Negative) Urine Occult Blood (Negative) Urine Nitrite (Negative) Urine Bilirubin (Negative) Urine Urobilinogen (0.2-1.0) Ur Leukocyte Esterase (Negative) Meds: Medications Generic Name Dose Route Start Last Admin Trade Name Freq PRN Reason Stop Dose Admin Lactated Ringer's 1,000 mls @ 150 mls/hr 03/22/20 00:30 03/22/20 00:36 Ringers, Lactated IV 150 mls/hr ASDIRECTED MARIANNE Administration Discontinued Medications Generic Name Dose Route Start Last Admin Trade Name Freq PRN Reason Stop Dose Admin Fentanyl 50 mcg 03/22/20 00:23 03/22/20 00:35 Sublimaze IVPUSH 03/22/20 00:24 50 mcg ONETIME ONE Administration Fentanyl 50 mcg 03/22/20 01:03 03/22/20 01:08 Sublimaze IVPUSH 03/22/20 01:04 50 mcg ONETIME ONE Administration Ondansetron HCl 4 mg 03/22/20 00:23 03/22/20 00:35 Zofran IVPUSH 03/22/20 00:24 4 mg ONETIME ONE Administration - Re-Assessments/Exams Free Text/Narrative Re-Assessment/Exam: 03/22/20 01:25 Abs reviewed we are getting her more comfortable hCG is negative we will check a CT KUB 03/22/20 02:31 CT is negative for active kidney stones she has a few small stones in the kidneys themselves but no evidence of hydronephrosis no stones seen in the ureters or stone in the bladder. Patient is doing better at this time labs are nondiagnostic. We will discharge the patient with a few [place] from the machine out in the waiting room offered something for nausea but she like to hold off on this. And we will get her scheduled for a right upper quadrant ultrasound as an outpatient Departure - Departure Time of Disposition: 02:32 Disposition: Home, Self-Care 01 Clinical Impression: Right sided abdominal pain - Discharge Information Referrals: Chantel Mercado, [employer] ROOM CASHIER [Primary Care Provider] - Forms: ED Department Discharge Additional Instructions: Return to the emergency room with any questions problems or worsening symptoms. Clear liquid diet for the next 24 hours then slowly advance as tolerated. I put in an order for an outpatient gallbladder ultrasound. You should hear from them Monday. Follow-up with your regular healthcare provider 2 or 3 days after the ultrasound is scheduled. You are to olive picker 20 hydrocodone/acetaminophen 5/325. Take 1 or 2 every 6 hours as needed for pain. Allow 12 hours after using this medication before driving or returning to work. Sepsis Event Note (ED) - Evaluation Sepsis Screening Result: No Definite Risk - Focused Exam Vital Signs: Vital Signs Temp Pulse Resp BP Pulse Ox 03/22/20 00:06 36.4 C 100 20 121/94 H 97 - My Orders Last 24 Hours: My Active Orders 03/22/20 00:30 Lactated Ringers [Ringers, Lactated] 1,000 ml IV ASDIRECTED 03/22/20 01:24 Abdomen Pelvis wo Cont [CT] Stat - Assessment/Plan Last 24 Hours: My Active Orders 03/22/20 00:30 Lactated Ringers [Ringers, Lactated] 1,000 ml IV ASDIRECTED 03/22/20 01:24 Abdomen Pelvis wo Cont [CT] Stat
[2020-03-22] MEDS ORDERED: fentaNYL 100 MCG/2 ML SDV IVPUSH ONE ×2 (00:23→01:03)
[2020-03-22] MEDS ORDERED: Ondansetron 4 MG/2 ML SDV IVPUSH ONE (00:23)
[2020-03-22] MEDS ORDERED: Lactated Ringers 1,000 ML IV SCH (00:30)
--- NOTE | 2020-03-22 13:25 | CT ---
CT abdomen and pelvis Technique: Multiple axial sections were obtained from above the dome of the diaphragm inferiorly through the pubic symphysis. Intravenous and oral contrast not utilized. Study performed as a ureteral stone protocol. Comparison: Previous CT abdomen and pelvis exam of 09/14/15. Visualized lung bases show nothing acute. Liver contains no focal parenchymal abnormality. Spleen appears within normal limits. Adrenal glands show no nodule. Nonobstructing small calculi are noted within both kidneys. No ureteral dilatation or ureteral stone is seen. Gallbladder contains no calcified gallstones. Pancreas appears within normal limits. Aorta shows no aneurysm. No retroperitoneal adenopathy or mesenteric abnormalities are seen. No pelvic mass or adenopathy is seen. No free fluid or inflammatory change is seen. Follicles are seen within the ovaries. Surgical material is seen off the tip of the cecum most likely relating to previous appendectomy. Scattered mesenteric lymph nodes are noted which remain stable from prior exam. Bone window settings were reviewed which showed no acute osseous finding. Impression: 1. Stable mesenteric lymph nodes. 2. Nonobstructing renal calculi. 3. Nothing acute is appreciated on cyst noncontrast CT study of the abdomen and pelvis. Diagnostic code #2 This report was dictated in MDT I agree with preliminary report from [facility], finalized on 03/22/20, 3:13 AM Central Daylight Time
== END 2020-03-22 02:44 | disposition home or self-care (01) ==
LOC: JD.ED 23:55
DX: R10.9 Unspecified abdominal pain (principal); J45.909 Unspecified asthma, uncomplicated; Z88.0 Allergy status to penicillin; Z91.018 Allergy to other foods; Z90.49 Acquired absence of other specified parts of digestive tract
CPT/HCPCS: 36415; 74176; 80053; 81003; 83690; 84703; 85025; 96361; 96374; 96375; 96376; 99284; J2405; J3010; J7120

== ENCOUNTER 2021-05-11 14:06 | Emergency (ER) | payer SELFPAY ==
[2021-05-11 14:27] VITALS: BP 120/88; PULSE 81
[2021-05-11] MEDS ORDERED: Metoclopramide 10 MG/2 ML SDV IM ONE (14:54)
--- NOTE | 2021-05-11 15:07 | EDM.PDOC ---
ED HPI GENERAL MEDICAL PROBLEM - General Chief Complaint: Abdominal Pain Stated Complaint: 8 WKS PG NAUSEA CRAMPING Time Seen by Provider: 05/11/21 14:49 Source of Information: Reports: Patient, RN Notes Reviewed History Limitations: Reports: No Limitations - History of Present Illness INITIAL COMMENTS - FREE TEXT/NARRATIVE: Patient is a 25-year-old female who presents to the ER for the evaluation of her lower abdominal cramping and nausea. Patient is , and states she has had her evaluated by Dr. Barba and was found to have an intrauterine . Patient states she is having some lower abdominal cramping but no vaginal bleeding. She is having some nausea with some dry heaves. She states that she did have issues with constipation, but feels like that is resolved at this time. The patient is not had any fevers or chills, cough or shortness of breath, or any sort of diarrhea. Patient states she did try to go to the walk- in clinic, notes that she waited over an hour and a half and then they told her they could not help her. She called her NATURAL RESOURCES PROFESSOR and they did urge her to come to the ER for ongoing management. Patient is a G4, Right Lower Abdomen Pain Score (Numeric/FACES): 6 - Related Data Allergies Allergy/AdvReac Type Severity Reaction Status Date / Time penicillin Allergy Severe Rash Verified 05/11/21 14:27 strawberry Allergy Severe Hives Verified 05/11/21 14:27 Home Meds: Home Meds Acetaminophen [Tylenol] 325 mg PO Q4H 05/11/21 [History] Docusate Sodium [Stool Softener] 100 mg PO DAILY 05/11/21 [History] Metoclopramide HCl [Reglan] 10 mg PO Q6H PRN #20 tablet 05/11/21 [Rx] Ondansetron [Zofran ODT] 4 mg PO Q6H PRN 05/11/21 [History] Pnv No.95/Ferrous Fum/Folic AC [ Caplet] 1 each PO DAILY 05/11/21 [History] Past Medical History HEENT History: Reports: Impaired Vision Other HEENT History: wears eyeglasses, Hx-ear infections. Cardiovascular History: Reports: Arrhythmia, Heart Murmur Other Cardiovascular History: irregular heartbeat Respiratory History: Reports: Asthma Genitourinary History: Reports: None, UTI, Recurrent NATURAL RESOURCES PROFESSOR History: Reports: , Spontaneous , Therapeutic , Other (See Below) Other NATURAL RESOURCES PROFESSOR History: ovarian cysts Musculoskeletal History: Reports: Back Pain, Chronic, None Neurological History: Reports: Migraines Psychiatric History: Reports: Anxiety, Depression Immunologic History: Reports: None Oncologic (Cancer) History: Reports: None - Infectious Disease History Infectious Disease History: Reports: None - Past Surgical History HEENT Surgical History: Reports: Adenoidectomy, Tonsillectomy GI Surgical History: Reports: Appendectomy Other Female Surgeries/Procedures: x 1 Social & Family History - Family History Family Medical History: No Pertinent Family History HEENT: Reports: None Cardiac: Reports: None - Tobacco Use Tobacco Use Status *Q: Never Tobacco User - Caffeine Use Caffeine Use: Reports: Soda - Recreational Drug Use Recreational Drug Use: No - Living Situation & Occupation Living situation: Reports: Single Occupation: Student ED ROS GENERAL - Review of Systems Review Of Systems: Comprehensive ROS is negative, except as noted in HPI. ED EXAM, RENAL/ - Physical Exam Exam: See Below Exam Limited By: No Limitations General Appearance: Alert, WD/WN, No Apparent Distress, Anxious Respiratory/Chest: No Respiratory Distress, Lungs Clear, Normal Breath Sounds, No Accessory Muscle Use, Chest Non-Tender Cardiovascular: Normal Peripheral Pulses, Regular Rate, Rhythm, No Edema GI/Abdominal: Normal Bowel Sounds, Soft, No Distention, No Mass, Tender (very slight lower abd tenderness) Extremities: Normal Inspection, Normal Capillary Refill Neurological: Alert, Oriented, Normal Cognition, No Motor/Sensory Deficits Psychiatric: Normal Affect, Normal Mood Skin Exam: Warm, Dry, Intact, Normal Color, No Rash Course - Vital Signs Last Recorded V/S: Last Vital Signs Temp 97.9 F 05/11/21 14:24 Pulse 81 05/11/21 14:24 Resp 16 05/11/21 14:24 BP 120/88 05/11/21 14:24 Pulse Ox 96 05/11/21 14:24 - Orders/Labs/Meds Labs: Laboratory Tests 05/11/21 Range/Units 15:13 Urine Color Yellow (Yellow) Urine Appearance Cloudy H (Clear) Urine pH 7.5 (5.0-8.0) Ur Specific [place] 1.025 (1.005-1.030) Urine Protein Negative (Negative) Urine Glucose (UA) Negative (Negative) Urine Ketones Trace H (Negative) Urine Occult Blood Negative (Negative) Urine Nitrite Negative (Negative) Urine Bilirubin Negative (Negative) Urine Urobilinogen 0.2 (0.2-1.0) Ur Leukocyte Esterase Negative (Negative) Urine RBC 0-5 (0-5) /hpf Urine WBC 0-5 (0-5) /hpf Ur Squamous Epith Cells 0-5 (0-5) /hpf Amorphous Sediment Many H (NOT SEEN) /hpf Urine Bacteria Moderate H (FEW) /hpf Urine Mucus Few (FEW) /hpf Meds: Medications Discontinued Medications Generic Name Dose Route Start Last Admin Trade Name Lizzie PRN Reason Stop Dose Admin Acetaminophen 650 mg 05/11/21 15:51 Acetaminophen 325 Mg Tab PO 05/11/21 15:52 NOW ONE Metoclopramide HCl 10 mg 05/11/21 14:54 05/11/21 15:11 Metoclopramide 10 Mg/2 Ml Sdv IM 05/11/21 14:55 10 mg ONETIME ONE Administration - Re-Assessments/Exams Free Text/Narrative Re-Assessment/Exam: 05/11/21 15:06 Patient presents to the ER for evaluation of her lower abdominal cramping in . She is not having any vaginal bleeding, and an intrauterine has already been established we will go ahead and get a urinalysis for initial evaluation and give her 10 mg IM Reglan for initial management. 05/11/21 15:55 Urinalysis does not demonstrate any obvious sign of infection. Patient states that she is feeling better however, her abdomen discomfort has lessened, and her nausea has gotten better. We will keep her around for a few more minutes to make sure she can tolerate some crackers we will plan to give her some oral R eglan tablets for ongoing management of her nausea. I have ordered 650 mg Tylenol as well to see if this helps. 05/11/21 16:24 Patient states she is feeling better, she has been able to tolerate some crackers and a little bit of Gatorade. We will go ahead and discharge her at this time and have her follow-up with Dr. Barba this week if she is having any worsening OB symptoms. Departure - Departure Time of Disposition: 16:25 Disposition: Home, Self-Care 01 Condition: Good Clinical Impression: Nausea and vomiting during Abdominal pain in Qualifiers: Trimester: first trimester Qualified Code(s): O26.891 - Other specified related conditions, first trimester; R10.9 - Unspecified abdominal pain - Discharge Information *PRESCRIPTION DRUG MONITORING PROGRAM REVIEWED*: No *COPY OF PRESCRIPTION DRUG MONITORING REPORT IN PATIENT JEAN: No Instructions: Abdominal Pain During , [id number] Referrals: Sandip Barba MD [Primary Care Provider] - Forms: ED Department Discharge Additional Instructions: You were evaluated in the ER today for your nausea and vomiting and generalized abdominal discomfort in . You were given an antinausea medication, Reglan, this seemed to help relieve most of your nausea. You were also given 1 tablet of Tylenol being in the ER, and this also helped to see him improve your symptoms. You have been given a prescription for this antinausea medication, and it has been electronically prescribed to [facility]. You may take 1 tablet every 6 hours as needed for ongoing nausea. Recommend you follow-up with Dr. Barba, sometime this week just to make sure that the is progressing as expected, or you may return to the ER at any time if your symptoms should change or worsen. Sepsis Event Note (ED) - Evaluation Sepsis Screening Result: No Definite Risk - Focused Exam Vital Signs: Vital Signs Temp Pulse Resp BP Pulse Ox 05/11/21 14:24 97.9 F 81 16 120/88 96
[2021-05-11] MEDS ORDERED: Acetaminophen 325 MG Tab PO ONE (15:51)
== END 2021-05-11 16:40 | disposition home or self-care (01) ==
LOC: JD.ED 14:06
DX: O26.891 Other specified pregnancy related conditions, first trimester (principal); R10.31 Right lower quadrant pain; O21.9 Vomiting of pregnancy, unspecified; Z3A.08 8 weeks gestation of pregnancy
CPT/HCPCS: 81001; 96372; 99284; A9270; J2765

== ENCOUNTER 2021-10-23 15:40 | Emergency (ER) | payer BC ==
[2021-10-23 16:09] VITALS: BP 131/87; PULSE 118
== END 2021-10-23 17:27 | disposition home or self-care (01) ==
LOC: JD.ED 15:40
DX: O9A.23 Injury, poisoning and certain other consequences of external causes complicating the puerperium (principal); S93.491A Sprain of other ligament of right ankle, initial encounter; S80.211A Abrasion, right knee, initial encounter; Z88.0 Allergy status to penicillin; Z91.018 Allergy to other foods; Z3A.31 31 weeks gestation of pregnancy; X50.1XXA Overexertion from prolonged static or awkward postures, initial encounter
CPT/HCPCS: 73562-26-RT; 73562-RT; 73610-26-RT; 73610-RT; 99283-25

== ENCOUNTER 2021-12-18 06:27 | Inpatient (IN) | payer BC ==
[~2021-12-18 06:27] MED LIST: Bupivacaine 0.25% 10 ML SDV ONE
[2021-12-18] MEDS ORDERED: Sodium Chloride 0.9% 10 ML Syringe FLUSH PRN (06:40)
[2021-12-18] MEDS ORDERED: Nalbuphine HCl 10 MG/ 1ML Amp IVPUSH PRN (06:40)
[2021-12-18] MEDS ORDERED: Oxytocin/Lactated Ringers 10 UNIT/1,000 ML BAG IV SCH ×2 (06:45)
[2021-12-18] MEDS: Lactated Ringers 1,000 ML IV SCH ×6 (07:20→20:16)
[2021-12-18] MEDS: Ondansetron 4 MG/2 ML SDV IVPUSH PRN ×2 (07:20→16:16)
[2021-12-18] MEDS ORDERED: ePHEDrine 50 MG/ML SDV IVPUSH PRN (07:44)
[2021-12-18] MEDS ORDERED: fentaNYL 100 MCG/2 ML SDV EPIDUR PRN (07:44)
[2021-12-18] MEDS ORDERED: diphenhydrAMINE 50 MG/ML SDV IVPUSH PRN (07:44)
[2021-12-18] MEDS: Bupivacaine/fentaNYL/NS 100 ML Bag EPIDUR PRN ×2 (08:06→15:38)
[2021-12-18] MEDS ORDERED: Sodium Chloride 0.9% 10 ML Syringe FLUSH SCH (09:00)
[2021-12-18] MEDS: Acetaminophen 325 MG Tab PO PRN ×2 (11:35→16:52)
[2021-12-18] MEDS ORDERED: Benzocaine/Menthol 20%-0.5% Spray 78 GM Cannister TOP PRN (19:51)
[2021-12-18] MEDS ORDERED: Docusate Sodium 100 MG Cap PO PRN (19:51)
[2021-12-18] MEDS ORDERED: Witch Hazel Medicated Pads 40/Jar TOP PRN (19:51)
[2021-12-18] MEDS: Ibuprofen 600 MG Tab PO PRN (20:03)
[2021-12-19] MEDS: Ibuprofen 600 MG Tab PO PRN ×3 (06:34→18:15)
[2021-12-19] MEDS: Acetaminophen 325 MG Tab PO PRN ×2 (08:49→14:50)
[2021-12-19 22:43] VITALS: BP 123/84; PULSE 75
== END 2021-12-19 21:22 | disposition home or self-care (01) | DRG 560 ==
LOC: JD.OB 06:27 → OBSVTOIN 06:41 → JD.OB 19:16
PROVIDERS: ADMIT Obstetrics & Gynecology; ATTEND Obstetrics & Gynecology
PROC: 10E0XZZ Delivery of Products of Conception, External Approach (ICD-10-PCS; principal; 2021-12-18)
PROC: 3E0R3BZ Introduction of Anesthetic Agent into Spinal Canal, Percutaneous Approach (ICD-10-PCS; 2021-12-18)
PROC: 0KQM0ZZ Repair Perineum Muscle, Open Approach (ICD-10-PCS; 2021-12-18)
PROC: 00HU33Z Insertion of Infusion Device into Spinal Canal, Percutaneous Approach (ICD-10-PCS; 2021-12-18)
DX: O99.52 Diseases of the respiratory system complicating childbirth (principal); Z37.0 Single live birth; O70.1 Second degree perineal laceration during delivery; O69.81X0 Labor and delivery complicated by cord around neck, without compression, not applicable or unspecified; J45.909 Unspecified asthma, uncomplicated; G89.29 Other chronic pain; M54.9 Dorsalgia, unspecified; O99.62 Diseases of the digestive system complicating childbirth; K21.9 Gastro-esophageal reflux disease without esophagitis; O99.354 Diseases of the nervous system complicating childbirth; O99.214 Obesity complicating childbirth; G43.909 Migraine, unspecified, not intractable, without status migrainosus; Z87.891 Personal history of nicotine dependence; Z3A.39 39 weeks gestation of pregnancy; Z90.49 Acquired absence of other specified parts of digestive tract; Z88.0 Allergy status to penicillin; Z88.8 Allergy status to other drugs, medicaments and biological substances; Z91.018 Allergy to other foods
CPT/HCPCS: 36415; 51701; 51702; 59025; 59409; 85025; 86592; 86850; 86900; 86901; A9270-GY; J2405; J2590; J3010; J3490; J7120

== ENCOUNTER 2022-06-26 03:31 | Emergency (ER) | payer BC ==
[2022-06-26 03:49] VITALS: BP 115/80; PULSE 69
[2022-06-26] MEDS ORDERED: fentaNYL 100 MCG/2 ML SDV IVPUSH ONE (04:06)
[2022-06-26] MEDS ORDERED: Ondansetron 4 MG/2 ML SDV IVPUSH ONE (04:06)
[2022-06-26] MEDS ORDERED: Lactated Ringers 1,000 ML IV SCH (04:15)
[2022-06-26] MEDS ORDERED: metroNIDAZOLE 500 MG Tab PO ONE (07:02)
[2022-06-26] MEDS ORDERED: Levofloxacin 500 MG Tab PO ONE (07:02)
[2022-06-26] MEDS ORDERED: Acetaminophen/HYDROcodone 325-5 MG Tab PO ONE (07:26)
== END 2022-06-26 07:41 | disposition home or self-care (01) ==
LOC: JD.ED 03:31
DX: K52.9 Noninfective gastroenteritis and colitis, unspecified (principal); E66.9 Obesity, unspecified; Z68.28 Body mass index [BMI] 28.0-28.9, adult; Z88.0 Allergy status to penicillin; Z91.018 Allergy to other foods; Z79.899 Other long term (current) drug therapy; Z90.49 Acquired absence of other specified parts of digestive tract
CPT/HCPCS: 36415; 74177; 80053; 81001; 83690; 84703; 85025; 96361; 96374; 96375; 99284; A9270; J2405; J3010; J7120

== ENCOUNTER 2023-02-12 14:20 | Emergency (ER) | payer BC ==
[2023-02-12] MEDS ORDERED: HYDROmorphone 0.5 MG/0.5 ML Syringe IVPUSH ONE ×2 (15:01→15:41)
[2023-02-12] MEDS ORDERED: Ondansetron 4 MG/2 ML SDV IVPUSH ONE (15:01)
[2023-02-12] MEDS ORDERED: Sodium Chloride 0.9% 1,000 ML IV STA (15:01)
[2023-02-12] MEDS ORDERED: Sodium Chloride 0.9% 10 ML Syringe FLUSH PRN (15:02)
[2023-02-12 15:25] LABS: APPEARANCE,URINE SLT CLOUDY (Clear); BILIRUBIN,URINE NEGATIVE (Negative); COLOR,URINE YELLOW (Yellow); GLUCOSE,URINE NEGATIVE (Negative); KETONES,URINE 2+ (Negative); LEUKOCYTE ESTERASE,URINE NEGATIVE (Negative); NITRITE,URINE NEGATIVE (Negative); OCCULT BLOOD,URINE 2+ (Negative); PH,URINE 5.5 (5.0-8.0); PROTEIN,URINE 1+ (Negative); UROBILINOGEN,URINE 0.2 (0.2-1.0)
[2023-02-12 15:31] LABS: BACTERIA,URINE MODERATE /hpf (FEW); MUCUS,URINE FEW /hpf (FEW); WBC,URINE 0-5 /hpf (0-5)
[2023-02-12 15:38] LABS: BASOPHILS ABSOLUTE AUTO 0.01 K/mm3 (0.01-0.08); BASOPHILS PERCENT AUTO 0.1 % (0.1-1.2); EOSINOPHILS ABSOLUTE AUTO 0.06 K/mm3 (0.04-0.36); EOSINOPHILS PERCENT AUTO 0.4 (0.7-5.8); HEMATOCRIT 41.5 % (34.1-44.9); HEMOGLOBIN 13.6 gm/dl (11.2-15.7); IMMATURE GRAN ABSOLUTE AUTO 0.03 K/mm3 (0.00-0.10); IMMATURE GRAN PERCENT AUTO 0.2 % (<=1.0); LYMPHOCYTES ABSOLUTE AUTO 3.07 K/mm3 (1.18-3.74); MEAN CORPUSCULAR HEMOGLOBIN 30.6 pg (25.6-32.2); MEAN CORPUSCULAR HGB CONC 32.8 g/dl (32.2-35.5); MEAN CORPUSCULAR VOLUME 93.5 fl (79.4-94.8); MEAN PLATELET VOLUME 10.4 fl (9.4-12.3); MONOCYTES ABSOLUTE AUTO 1.26 K/mm3 (0.24-0.36); MONOCYTES PERCENT AUTO 9.4 % (4.7-12.5); NEUTROPHILS ABSOLUTE AUTO 8.94 K/mm3 (1.56-6.13); NEUTROPHILS PERCENT AUTO 66.9 % (34.0-71.1); PLATELET COUNT,PLT 248 K/mm3 (182-369); RED BLOOD CELL COUNT 4.44 M/mm3 (3.98-5.22); WHITE BLOOD CELL COUNT,WBC 13.37 K/mm3 (3.98-10.04)
[2023-02-12] MEDS ORDERED: Metoclopramide 10 MG/2 ML SDV IVPUSH ONE (15:41)
[2023-02-12 15:45] LABS: A/G RATIO 1.4 (1-2); ALANINE AMINOTRANSFERASE,ALT 19 U/L (14-59); ALBUMIN 4.7 g/dl (3.4-5.0); ALKALINE PHOSPHATASE 65 U/L (46-116); ANION GAP 18.7 (5-15); ASPARTATE AMNIOTRANSFERASE,AST 12 U/L (15-37); BILIRUBIN TOTAL 0.5 mg/dL (0.2-1.0); BLOOD UREA NITROGEN,BUN 14 mg/dL (7-18); C-REACTIVE PROTEIN <0.2 mg/dL (<1.0); CALCIUM 8.9 mg/dL (8.5-10.1); CARBON DIOXIDE,CO2 21 mEq/L (21-32); CHLORIDE,CL 106 mEq/L (98-107); EST CRCL DRUG DOSING (CG) 81.45 mL/min; ESTIMATED GFR 79 mL/min (>60); GLUCOSE RANDOM 109 mg/dL (70-99); POTASSIUM,K 3.7 mEq/L (3.5-5.1); SODIUM,NA 142 mEq/L (136-145)
[2023-02-12] MEDS ORDERED: Ketorolac 30 MG/ML SDV IVPUSH ONE (16:44)
[2023-02-12] MEDS ORDERED: Tamsulosin 0.4 MG Cap.ER PO ONE (16:52)
[2023-02-12 17:12] VITALS: BP 131/91; PULSE 61
== END 2023-02-12 17:07 | disposition home or self-care (01) ==
LOC: JD.ED 14:20
DX: N13.2 Hydronephrosis with renal and ureteral calculous obstruction (principal); J45.909 Unspecified asthma, uncomplicated; K21.9 Gastro-esophageal reflux disease without esophagitis; E66.9 Obesity, unspecified; Z88.0 Allergy status to penicillin; Z91.018 Allergy to other foods; Z79.899 Other long term (current) drug therapy
CPT/HCPCS: 36415; 74176; 80053; 81001; 84703; 85025; 86140; 96361; 96374; 96375; 96376; 99284; A9270; J1170; J1885; J2405; J2765; J3490; J7030

== ENCOUNTER 2023-07-10 05:39 | Emergency (ER) | payer BC ==
[2023-07-10] MEDS ORDERED: Metoclopramide 10 MG/2 ML SDV IVPUSH ONE (06:33)
[2023-07-10] MEDS ORDERED: HYDROmorphone 0.5 MG/0.5 ML Syringe IVPUSH ONE (06:35)
[2023-07-10] MEDS ORDERED: Dextrose 5%-Lactated Ringers 1,000 ML IV SCH (06:45)
[2023-07-10 07:05] LABS: BASOPHILS PERCENT AUTO 0.1 % (0.0-1.0); EOSINOPHILS PERCENT AUTO 0.2 % (0.0-6.0); HEMOGLOBIN 15.2 gm/dl (12.0-16.0); IMMATURE GRAN ABSOLUTE AUTO 0.05 K/mm3 (0.00-0.05); IMMATURE GRAN PERCENT AUTO 0.3 % (0.0-0.4); LYMPHOCYTES ABSOLUTE AUTO 0.5 K/mm3 (1.0-4.8); LYMPHOCYTES PERCENT AUTO 2.6 % (24.0-44.0); MEAN CORPUSCULAR HEMOGLOBIN 31.3 pg (28.0-32.0); MEAN CORPUSCULAR HGB CONC 34.5 g/dl (32.0-36.0); MEAN CORPUSCULAR VOLUME 90.7 fl (83.0-99.0); MEAN PLATELET VOLUME 9.2 fl (9.4-12.3); MONOCYTES ABSOLUTE AUTO 0.5 K/mm3 (0.0-0.8); MONOCYTES PERCENT AUTO 2.6 % (0.0-8.0); NEUTROPHILS ABSOLUTE AUTO 17.5 K/mm3 (1.8-7.7); NEUTROPHILS PERCENT AUTO 94.2 % (41.0-71.0); PLATELET COUNT,PLT 249 K/mm3 (150-400); RED BLOOD CELL COUNT 4.85 M/mm3 (4.10-5.30); WHITE BLOOD CELL COUNT,WBC 18.58 K/mm3 (3.9-11.3)
[2023-07-10 07:30] LABS: SLIDE REVIEW ABNORMAL SMEAR
[2023-07-10 07:33] LABS: A/G RATIO 1.3 (1-2); ALBUMIN 4.8 g/dl (3.4-5.0); ANION GAP 21.8 (5-15); BILIRUBIN TOTAL 1.5 mg/dL (0.2-1.0); BUN/CREATININE RATIO 21.3 (14-18); C-REACTIVE PROTEIN 0.4 mg/dL (<1.0); CALCIUM 9.6 mg/dL (8.5-10.1); CREATININE 0.8 mg/dL (0.55-1.02); EST CRCL DRUG DOSING (CG) 101.81 mL/min; POTASSIUM,K 3.8 mEq/L (3.5-5.1); PROTEIN TOTAL,TP 8.5 g/dl (6.4-8.2)
[2023-07-10 10:27] VITALS: BP 106/76; PULSE 82
== END 2023-07-10 08:45 | disposition home or self-care (01) ==
LOC: JD.ED 05:39
DX: A08.4 Viral intestinal infection, unspecified (principal); E66.9 Obesity, unspecified; Z88.0 Allergy status to penicillin; Z91.018 Allergy to other foods; Z90.49 Acquired absence of other specified parts of digestive tract; Z68.24 Body mass index [BMI] 24.0-24.9, adult
CPT/HCPCS: 36415; 80053; 82010; 84703; 85025; 86140; 96361; 96374; 96375; 99284; J1170; J2765; J7121

== ENCOUNTER 2023-12-25 07:45 | Emergency (ER) | payer BC ==
[2023-12-25 08:32] LABS: BASOPHILS PERCENT AUTO 0.1 % (0.0-1.0); HEMATOCRIT 41.6 % (37.0-47.0); HEMOGLOBIN 14.5 gm/dl (12.0-16.0); IMMATURE GRAN ABSOLUTE AUTO 0.09 K/mm3 (0.00-0.05); IMMATURE GRAN PERCENT AUTO 0.4 % (0.0-0.4); LYMPHOCYTES ABSOLUTE AUTO 0.7 K/mm3 (1.0-4.8); LYMPHOCYTES PERCENT AUTO 2.8 % (24.0-44.0); MEAN CORPUSCULAR HEMOGLOBIN 31.2 pg (28.0-32.0); MEAN CORPUSCULAR HGB CONC 34.9 g/dl (32.0-36.0); MEAN CORPUSCULAR VOLUME 89.5 fl (83.0-99.0); MEAN PLATELET VOLUME 9.7 fl (9.4-12.3); MONOCYTES ABSOLUTE AUTO 0.8 K/mm3 (0.0-0.8); MONOCYTES PERCENT AUTO 3.5 % (0.0-8.0); NEUTROPHILS ABSOLUTE AUTO 21.6 K/mm3 (1.8-7.7); NEUTROPHILS PERCENT AUTO 93.2 % (41.0-71.0); PLATELET COUNT,PLT 205 K/mm3 (150-400); RED BLOOD CELL COUNT 4.65 M/mm3 (4.10-5.30); WHITE BLOOD CELL COUNT,WBC 23.16 K/mm3 (3.9-11.3)
[2023-12-25] MEDS: Sodium Chloride 0.9% 1,000 ML IV ONE ×2 (08:35→10:09)
[2023-12-25] MEDS: Ondansetron 4 MG/2 ML SDV IVPUSH ONE (08:35)
[2023-12-25] MEDS: Morphine 4 MG/ML Syringe IVPUSH ONE (08:35)
[2023-12-25 08:47] LABS: SLIDE REVIEW ABNORMAL SMEAR
[2023-12-25 08:52] LABS: A/G RATIO 1.3 (1-2); ALBUMIN 4.5 g/dl (3.4-5.0); ANION GAP 21.5 (5-15); BILIRUBIN TOTAL 1.3 mg/dL (0.2-1.0); BUN/CREATININE RATIO 13.8 (14-18); CALCIUM 9.4 mg/dL (8.5-10.1); CREATININE 0.8 mg/dL (0.55-1.02); EST CRCL DRUG DOSING (CG) 100.9 mL/min; POTASSIUM,K 3.5 mEq/L (3.5-5.1); PROTEIN TOTAL,TP 8.1 g/dl (6.4-8.2)
[2023-12-25 08:56] LABS: APPEARANCE,URINE CLEAR (Clear); BILIRUBIN,URINE 1+ (Negative); COLOR,URINE DARK YELLOW (Yellow); GLUCOSE,URINE NEGATIVE (Negative); KETONES,URINE 4+ (Negative); LEUKOCYTE ESTERASE,URINE NEGATIVE (Negative); NITRITE,URINE NEGATIVE (Negative); OCCULT BLOOD,URINE NEGATIVE (Negative); PH,URINE 7.5 (5.0-8.0); PROTEIN,URINE 2+ (Negative); UROBILINOGEN,URINE 0.2 (0.2-1.0)
[2023-12-25 09:10] LABS: BACTERIA,URINE FEW /hpf (FEW); MUCUS,URINE MANY /hpf (FEW); RBC,URINE 0-5 /hpf (0-5); WBC,URINE 0-5 /hpf (0-5)
[2023-12-25] MEDS: Ketorolac 30 MG/ML SDV IVPUSH ONE (11:16)
[2023-12-25 11:31] LABS: CORONAVIRUS COVID-19 NAA NEGATIVE (NEGATIVE); INFLUENZA A NAA NEGATIVE (NEGATIVE); RESPIRATORY SYNCYTIAL VIR NAA NEGATIVE (NEGATIVE)
[2023-12-25 11:38] LABS: LACTIC ACID 0.8 mmol/L (0.4-2.0)
[2023-12-25 17:20] VITALS: BP 101/55; PULSE 84
== END 2023-12-25 13:26 | disposition home or self-care (01) ==
LOC: JD.ED 07:45
DX: A08.4 Viral intestinal infection, unspecified (principal); S39.011A Strain of muscle, fascia and tendon of abdomen, initial encounter; K21.9 Gastro-esophageal reflux disease without esophagitis; Z88.0 Allergy status to penicillin; Z79.899 Other long term (current) drug therapy; X58.XXXA Exposure to other specified factors, initial encounter
CPT/HCPCS: 0241U; 36415; 74176; 80053; 81001; 83605; 85025; 96361; 96374; 96375; 99284; J1885; J2270; J2405; J7030

== ENCOUNTER 2024-05-06 15:06 | Emergency (ER) | payer BC ==
[2024-05-06 15:39] VITALS: BP 120/94; PULSE 79
== END 2024-05-06 17:28 | disposition home or self-care (01) ==
LOC: JD.ED 15:06
DX: G93.5 Compression of brain (principal); J45.909 Unspecified asthma, uncomplicated; K21.9 Gastro-esophageal reflux disease without esophagitis; E66.9 Obesity, unspecified; Z68.23 Body mass index [BMI] 23.0-23.9, adult; Z90.49 Acquired absence of other specified parts of digestive tract; Z79.899 Other long term (current) drug therapy; Z88.0 Allergy status to penicillin
CPT/HCPCS: 70551; 70551-26; 99284